=== PATIENT | female | born 1965 | race American Indian/Alaskan Native ===

== ENCOUNTER 2022-02-25 13:03 | Outpatient (CLI) | payer BC ==
--- NOTE | 2022-02-25 14:59 | Fluoroscopy Report ---
BARIUM SWALLOW Indication: Morbid obesity. Technique: Single and double contrast barium technique utilized to evaluate the esophagus. FINDINGS: To begin the exam, swallowing was evaluated in the lateral position under direct fluorosco py. Swallowing was normal. No mucosal irregularity, mass, mass effect, or critical stenosis. Occasional tertiary contractions were witnessed in the mid to distal esophagus with to and fro flow of contrast material and delayed e sophageal emptying. A small sliding hiatal hernia was also witnessed during this exam. No gastroesoph ageal reflux was witnessed. IMPRESSION: Mild esophageal dysmotility as described. Small sliding hiatal hernia. Fluoroscopic time: 2.1 minutes Number of fluoroscopic images: 61 Signer Name: Flavio Allen Jr, MD Signed: 02/25/2022 2:54 PM Workstation Name: [id number]
== END 2022-02-25 13:04 | disposition home or self-care (01) ==
LOC: FLUORO 13:03
PROVIDERS: ATTEND Surgery
DX: Z01.818 Encounter for other preprocedural examination (principal); K44.9 Diaphragmatic hernia without obstruction or gangrene; K22.89 Other specified disease of esophagus; E66.01 Morbid (severe) obesity due to excess calories
CPT/HCPCS: 74220

== ENCOUNTER → 2022-04-16 | Outpatient (CLI) | payer BC | END | disposition home or self-care (01) | LOC: SLR 11:00 | PROVIDERS: ATTEND Surgery | DX: G47.30 Sleep apnea, unspecified (principal) | CPT/HCPCS: G0399 ==

== ENCOUNTER 2022-05-06 07:26 | Day surgery (SDC) | payer BC ==
[~2022-05-06 07:26] MED LIST: SODIUM CHLORIDE 0.9% 1000 ML 1,000 ML IV SCH
--- NOTE | 2022-05-06 08:34 | Anesthesia Day of Surgery ---
Anesthesia Day of Surgery - Day of Surgery Patient Examined: Yes Patient H&P Reviewed: Yes Patient is NPO: Yes
--- NOTE | 2022-05-06 08:34 | Anesthesia Consultation ---
Anesthesia Consult and Med Hx Date of service: 05/06/22 - Airway Anesthetic Teeth Evaluation: Good, Partials (bottom) ROM Head & Neck: Adequate Mental/Hyoid Distance: Adequate Mallampati Class: Class III Intubation Access Assessment: Possibly Difficult - Pre-Operative Health Status ASA Pre-Surgery Classification: ASA3 Proposed Anesthetic Plan: MAC - Pulmonary Hx Smoking: Yes (30 pack/year, quit 10 years ago) Hx Respiratory Symptoms: Yes (has some seasonal sinuses drainage) - Cardiovascular System Hx Hypertension: Yes - Central Nervous System Hx Back Pain: Yes - Other Systems Hx Obesity: Yes (Morbid obesity BMI 52.9)
[2022-05-06] MEDS ORDERED: propofoL 200 MG/20 ML VIAL IV ONE ×2 (09:50)
--- NOTE | 2022-05-06 10:00 | Operative Report ---
Operative Report Operative Report: DATE: 05/06/2022 SURGERY: Upper endoscopy. SURGEON: Karol Sánchez M.D. PROCEDURE: EGD with biopsy PRE OP DX: morbid obesity, GERD POST OP DX: morbid obesity, GERD TYPE OF ANESTHESIA: MAC. ESTIMATED BLOOD LOSS: None. COMPLICATIONS: None. SPECIMENS REMOVED: antral biopsy FINDINGS: 1. Small hiatal hernia. 2. antral gastritis INDICATIONS:INDICATION FOR PROCEDURE: Patient is a 57-year-old female with a long history of morbid obesity. She is planned to have a weight loss procedure and is here for preoperative planning EGD. PROCEDURE DETAILS: After consent was reviewed, patient was taken back to the operating room where patient was placed in the left lateral decubitus position and a bite block was placed in the mouth. After a time-out was called, MAC anesthesia was initiated. I then passed the endoscope into her oropharynx, into her esophagus, visualized the entire esophagus, which was all within normal limits. Z-line was noted to about 40cm from incisors. I then visualized the stomach and the first portion of the duodenum and there were no abnormalities I could clearly visualize except for antral gastritis. A cold forceps biopsy of the antrum was taken and will be sent to pathology to evaluate for H.pylori. I then retroflexed the scope in the stomach and visualized the hiatus and I could see a small hiatal hernia. I then desufflated the stomach and removed the endoscope. Patient tolerated procedure well and was transferred to recovery room in good and stable condition.
--- NOTE | 2022-05-06 10:13 | Discharge Summary ---
Providers - Providers Date of Admission: 05/06/2022 Date of discharge: 05/06/22 Attending physician: BATOOL SAUL MD Primary care physician: BATOOL SAUL MD Hospitalization Reason for admission: pre-op planning Condition: Good Procedures: egd with bx Hospital course: Pt presented for a pre-op EGD as part of planning for up coming bariatric surgery. Procedure was uneventful and pt recovered well and was discharged to home. Disposition: 01 HOME / SELF CARE / HOMELESS Final Discharge Diagnosis (Prints w/discharge instructions): morbid obesity, gerd Core Measure Documentation - Palliative Care Palliative Care/ Comfort Measures: Not Applicable - Core Measures Any of the following diagnoses?: none Exam - Physical Exam Narrative exam: unchanged from pre-op exam Plan Activity: advance as tolerated Diet: low carbohydrate Follow up with: BATOOL SAUL MD [Primary Care Provider] - 7 Days
--- NOTE | 2022-05-06 10:41 | Post Anesthesia Evaluation ---
- Post Anesthesia Evaluation Patient Participated: Yes Airway Patent: Yes Stable Respiratory Function: Yes Nausea/Vomiting: No Temp > 96.8F: Yes Pain Manageable: Yes Adequeate Hydration: Yes Anesthesia Complications: No
[2022-05-06 10:47] VITALS: BP 131/72
== END 2022-05-06 10:40 | disposition home or self-care (01) ==
LOC: GIO 07:26
PROVIDERS: ATTEND Surgery
DX: K21.9 Gastro-esophageal reflux disease without esophagitis (principal); E66.01 Morbid (severe) obesity due to excess calories; K44.9 Diaphragmatic hernia without obstruction or gangrene; K29.70 Gastritis, unspecified, without bleeding; K31.89 Other diseases of stomach and duodenum; I10 Essential (primary) hypertension; Z87.891 Personal history of nicotine dependence; Z68.43 Body mass index [BMI] 50.0-59.9, adult
CPT/HCPCS: 43239; 88305; 88342; J2704